=== PATIENT | male | born 1945 | race Caucasian/White ===

== ENCOUNTER → 2017-05-03 12:32 | Outpatient (CLI) | payer MEDICARE, OTHER ==
[~2017-05-03 12:32] MED LIST: ACIPHEX20 MG PO; AMITRIPTYLINE H50 MG PO; BUPROPION HCL100 M1 PO; CALTRATE-600600 MG PO; CENTRUM COMPLE1 EACH PO; COZAAR100 MG PO; EFFEXOR75 MG PO; GLUCOPHAGE500 MG PO; GLUCOSAMINE & C1 CAP PO; HCTZ25 MG PO; NORCO 10/325 TA1 TA1 PO; NORCO 7.5/325 T1 TA1 PO; PULMICORT180 MCG/AE INH; RESTORIL15 MG PO; ROBAXIN-750750 MG PO; ZOCOR80 MG PO
== END | disposition home or self-care (01) ==
LOC: D.CT 12:32
DX: R94.30 Abnormal result of cardiovascular function study, unspecified (principal); R42 Dizziness and giddiness

== ENCOUNTER 2018-02-22 23:45 | Inpatient (IN) | payer MEDICARE, OTHER ==
[~2018-02-22] VITALS: Ht 177.8 cm; Wt 109.1 kg
--- NOTE | ~2018-02-22 | CN ---
PATIENT NAME:MARCOS SAXENA MEDICAL RECORD: [id number] : 49 LOCATION:XIOMY.E09- ADMIT DATE: 02/23/18 ACCOUNT: [id number] CONSULTING PHYSICIAN: DEE MANNING MD REFERRING PHYSICIAN: DORA VILLANUEVA MD DATE OF CONSULTATION: 02/23/2018 DIAGNOSES: 1. Unstable angina. 2. Coronary artery disease. 3. Previous percutaneous transluminal coronary angioplasty stent in 2001. 4. Hypertension. 5. Hyperlipidemia. 6. Carotid vascular disease. 7. Unsteady gait bilaterally. HISTORY OF PRESENT ILLNESS: This is a gentleman who presents with anginal symptomatology. He had multiple hours of chest pain yesterday. He does have a cardiac history. Last cardiac stent was in 2001. He has hypertension and hyperlipidemia. He has been worked up recently for unsteady gait. Carotid exam is pending. PHYSICAL EXAMINATION: GENERAL APPEARANCE: Well-nourished, well-developed, appears stated age. Level of distress, comfortable. PSYCHIATRIC: Mental status, alert, normal affect. Orientation, oriented to time, place and person. EYES: Lids and conjunctiva, noninjected. No discharge, no pallor. ENT: Lips, teeth, gums, normal dentition. Oropharynx, no cyanosis, no pallor. NECK: Carotid arteries, bilateral normal upstroke, no bruits, no thrills. JUGULAR VEINS: No jugular venous pressure or distention. CERVICAL LYMPH NODES: Nontender, nonenlarged. THYROID: Not enlarged. Nontender. No nodules. LUNGS: Respiratory effort, unlabored. CHEST: Normal curvature. No thoracic deformity. No chest wall tenderness. Percussion, resonant. Auscultation, clear. No wheezes, no rales, no rhonchi. CARDIOVASCULAR: Precordial exam, nondisplaced. No heaves or pericardial thrills. Rate and rhythm, regular. Heart sounds, normal S1, normal S2. No S3, no gallop, no rub. Systolic murmur, not heard. Diastolic murmur, not heard. EXTREMITIES: No cyanosis, no edema. Peripheral pulses, full and equal in all extremities, except as noted. No bruits appreciated. ABDOMEN: Soft, nondistended. Normal aorta. No bruit. Nontender. No masses. Liver, nontender, no hepatomegaly. Spleen, nontender, no splenomegaly. MUSCULOSKELETAL: No joint tenderness. No joint swelling. No erythema. NEUROLOGICAL: Normal gait, normal strength, normal tone. SKIN: Warm and dry. OVERALL IMPRESSION: Anginal symptomatology in an unstable fashion, the patient with known coronary artery disease. We will proceed with coronary angiography. We will also do four-vessel carotid and vertebral angiography secondary to the unsteady gait. TRANSINT:[id number] Voice Confirmation ID: [id number] DOCUMENT ID: [id number] CONSULT REPORT [id number] MARCOS SAXENA JEFFREY MD CC: [id number] DICTATION DATE: 02/23/18817 VISUAL MERCHANDISER: 02/23/1848 ADM IN [facility] [address] [id number]
--- NOTE | ~2018-02-22 | OP ---
PATIENT NAME: MARCOS SAXENA MEDICAL RECORD: [id number] :49 LOCATION:EDITA SeguraCL03 ADMISSION DATE:02/23/18 SURGEON: DEE MANNING MD DATE OF OPERATION: 02/23/2018 DATE OF SERVICE: 02/23/2018 PROCEDURES: 1. Four-vessel carotid and vertebral angiography. 2. Left heart catheterization. 3. Selective coronary angiography. 4. Left ventriculogram. 5. Intravascular ultrasound. 6. PTCA stent LAD. INDICATION: Unstable angina, unsteady gait, coronary artery disease, carotid vascular disease. DESCRIPTION OF PROCEDURE: After informed consent was obtained and after a detailed description of risks, benefits as well as alternative therapies, the patient elected to proceed with angiogram and angioplasty. The right femoral area was prepped and draped in normal sterile fashion. Right femoral artery was cannulated via modified Seldinger technique with placement of 6-Nepali sheath. All catheters exchanged through this sheath. FINDINGS: There was subselection of each subclavian as well as the left carotid. RIGHT SIDE: The common internal and external carotids have mild plaquing, none greater than 20%, no flow-limiting stenosis. Vertebral artery has no significant disease. LEFT SYSTEM: The common internal and external carotids have mild plaquing, none greater than 20%, no flow-limiting stenosis. Vertebral artery has no significant disease. Left ventriculogram was performed in standard 30-degree KILPATRICK view, reveals good cardiac wall motion throughout all segments. Overall ejection fraction estimated at 60%. SELECTIVE CORONARY ANGIOGRAPHY: 1. Left main showed no significant angiographic disease. 2. Left anterior descending has 65% to 70% stenosis in the mid vessel confirmed by intravascular ultrasound. 3. The left circumflex has mild irregularities, but no flow-limiting stenosis. 4. Right coronary has mild irregularities, but no flow-limiting stenosis. PTCA STENT OF THE LAD: The stent used is 3.0 x 15 mm Integrity. Result was 0% residual stenosis. OVERALL IMPRESSION: Successful percutaneous transluminal coronary angioplasty stent of the left anterior descending going from 70% initial stenosis confirmed by intravascular ultrasound to 0% residual. TRANSINT:[id number] Voice Confirmation ID: [id number] DOCUMENT ID: [id number] OPERATIVE REPORT [id number] MARCOS SAXENA DEE CHOI MD CC: [id number] DICTATION DATE: 02/23/18 1019 STRINGER MACHINE TENDER: 02/23/18 1038 ADM IN [facility] [address] [id number]
--- NOTE | ~2018-02-22 | HEMODYNAMI ---
PATIENT:MARCOS SAXENA MEDICAL RECORD: [id number] : 49 LOCATION:EDITA SeguraCL03 ADMISSION DATE: 02/23/18 Generatedon:02/23/201810:21 Patient name: MARCOS SAXENA Patient #: [id number] SSN: D OB: 1945 Date of study: 02/23/2018 Page: Of Hemodynamic Procedure Report Patient Data Patient Demographics Procedure consent was obtained First Name: MARCOS Gender: Male Last Name: HEMANTH : 1945 [facility] Initial: ELLE Age: 73 year(s) Patient #: [id number] Race: Unknown Additional ID: [id number] Contact details Address: [address] [place] [address] State: [place] City: [place] Zip code: [address] Past Medical History Allergies: No known allergies Admission Admission Data Admission Date: 02/23/2018 Admission Time: 1:34 Room #: D.CL03 Height (in.): 70 BSA: 2.26 (m2) Height (cm.): 177.8 BMI: 34.51 (kg/m2) Weight (lbs.): 240.5 Weight (kg.): 109.09 Lab Results Lab Result Date: 02/23/2018 Lab Result Time: 0:00 Biochemistry Name Units Result Min Max BUN mg/dl 20 --(----)*- 7 18 Creatinine mg/dl 1.2 --(---*)-- 0.6 1.3 CBC Name Units Result Min Max Hemoglobin g/dl 15 --(-*--)-- 13.5 17.5 Procedure Procedure Types Cath Procedure Diagnostic Procedure [facility] w/Coronaries FFR/IVUS Intra-Coronary IVUS Initial PCI Procedure Coronary Stent Coronary Stent Initial Peripheral Cath Diagnostic Procedure Guide Peripheral Procedures Four Vessel Arteriogram Procedure Description Procedure Date Procedure Date: 02/23/2018 Procedure Start Time: 10:00 Procedure End Time: 10:18 Procedure Staff Name Function Floyd Pelayo MD Performing Physician Gisselle Mitchell RT Monitor Domenico Palomo RT Scrub Yasemin Henry RN Nurse Bari Espana RT Plater Printed Circuit Board Panels Procedure Data Cath Procedure Fluoroscopy Diagnostic fluoroscopy Total fluoroscopy Time: 4.4 time: 4.4 min min Diagnostic fluoroscopy Total fluoroscopy dose: 980 dose: 980 mGy mGy Contrast Material Contrast Material Type Amount (ml) Isovue 300 178 Entry Location Entry Primary Successful Side Size Upsize Upsize Entry Closure Succes sful Closure Location (Fr) 1 (Fr) 2 (Fr) Remarks Device Remarks Femoral Right 5 Fr 6 Fr Exoseal artery Short Estimated blood loss: 10 ml Diagnostic catheters Device Type Used For End Catheter Placement MULTIPACK Pigtail 5 Fr Procedure catheter MULTIPACK JL 4.0 5Fr Procedure catheter MULTIPACK 3DRC 5Fr Procedure catheter DIAGNOSTIC AR2 MOD 5 Fr Procedure catheter ([id number]) MULTIPACK 3DRC 5Fr Procedure catheter Procedure Complications No complications Procedure Medications Medication Administration Route Dosage 0.9% NaCl I.V. 100 ml/hr Oxygen etCO2 Nasal cannula 2 l/min Lidocaine 2% added to field 20 Heparin Flush Bag added to field 2 bags (1000units/500ml NS) Versed I.V. 2 mg Fentanyl I.V. 50 mcg Versed I.V. 2 mg Fentanyl I.V. 50 mcg Heparin Bolus I.V. 4000 units Integrilin (Bolus I.V. 9.5 ml 2mg/ml) Versed I.V. 1 mg Hemodynamics Rest BSA: 2.26 (m2) HGB: 15 (g/dl) O2 Consumption: Estimated: 257.09 (ml/min) O2 Cons umption indexed: Estimated:113.76 (ml/min/m) Heart Rate: 65 (bpm) Snapshots Pre Cath Intra NCS Post Cath Vital Signs Time Heart Resp SPO2 etCO2 NIBP (mmHg) Rhythm Pain Sedation Rate (ipm) (%) (mmHg) Status Level (bpm) 9:34:55 62 13 96 17.1 169/107(137) NSR 0 (11) 10(A) , No pain 9:39:13 62 19 90 46.9 147/95(119) NSR 0 (11) 10(A) , No pain 9:43:33 62 16 98 27.6 148/97(124) NSR 0 (11) 10(A) , No pain 9:47:53 64 23 98 56 162/106(142) NSR 0 (11) 10(A) , No pain 9:52:13 68 28 98 55.9 157/108(133) NSR 0 (11) 10(A) , No pain 9:56:38 69 15 98 7.4 164/99(132) NSR 0 (11) 10(A) , No pain 10:00:55 70 15 97 8.2 150/101(127) NSR 0 (11) 10(A) , No pain 10:05:16 75 19 97 9.6 168/102(115) NSR 0 (11) 10(A) , No pain 10:09:44 73 18 97 40.3 156/98(133) NSR 0 (11) 10(A) , No pain 10:14:04 82 14 97 13.4 153/113(122) NSR 0 (11) 10(A) , No pain 10:18:22 70 16 98 46.9 149/101(131) NSR 0 (11) 10(A) , No pain Medications Time Medication Route Dose Verified Delivered Reason Notes Effectiveness by by 9:37:23 0.9% NaCl I.V. 100 Floyd Yasemin used for ml/hr Pierce Henry teleprinter 9:37:30 Oxygen etCO2 2 Floyd Yasemin used for Nasal l/min Pierce Henry procedure cannula RN 9:37:35 Lidocaine 2% added 20ml Floyd Floyd for local to vial Pierce Pelayo MD anesthetic field 9:37:39 Heparin Flush added 2 Floyd Floyd used for Bag to bags Pierce Pelayo MD procedure (1000units/500ml field NS) 9:59:25 Versed I.V. 2 mg Floyd Yasemin for sedation Pierce Henry RN 9:59:32 Fentanyl I.V. 50 Floyd Yasemin for sedation mcg Pierce Henry RN 10:07:39 Versed I.V. 2 mg Floyd Yasemin for sedation Pierce Henry RN 10:07:43 Fentanyl I.V. 50 Floyd Yasemin for sedation mcg Pierce Henry RN 10:12:27 Heparin Bolus I.V. 4000 Floyd Yasemin for verif ied units Pierce Henry anticoagulation with Dr. KAREN Pelayo 10:12:29 Versed I.V. 1 mg Floyd Hazel for sedation Pierce Henry RN 10:13:04 Integrilin I.V. 9.5 Floyd Hazel for waste d (Bolus 2mg/ml) ml Pierce Henry anticoagulation 0.5mL pet technologist Log Time Note 9:12:02 Bari Espana RT(R) sent for patient. Start room use. 9:13:21 Signed procedure consent form obtained from patient. 9:13:26 H&P Date Dictated: 02/23/2018 ER History on chart.. 9:13:28 Diagnostic Cath status Elective 9::29 Time tracking: Regular hours (M-F 7:00 - 5:00) 9:13:33 Plan of Care:Hemodynamics will remain stable., Cardiac rhythm will remain stable., Comfort level will be maintained., Respiratory function will remain adequate., Patient/ family verbilizes understanding of procedure., Procedure tolerated without complication., Recovers from procedure without complications.. 9:13:45 Patient allergic to No known allergies 9:14:13 Lab Result : BUN 20 mg/dl 9:14:13 Lab Result : Hemoglobin 15 g/dl 9:14:13 Lab Result : Creatinine 1.2 mg/dl 9:28:09 Patient received from ED to CCL 1 Alert and oriented. Tansferred to table in Supine position. 9:28:09 Warm blankets applied, and rob hugger turned on for patient comfort. 9:28:10 Correct patient and procedure confirmed by team. 9:28:10 ECG and BP/O2 sat monitors applied to patient. 9:33:34 Vital chart was started 9:37:03 Baseline sample Acquired. 9:37:05 Rhythm: sinus rhythm 9:37:06 Full Disclosure recording started 9:37:07 Pre-procedure instructions explained to patient. 9:37:07 Pre-op teaching completed and patient verbalized understanding. 9:37:09 Family in waiting room. 9:37:18 Is patient on blood thinner?Yes 9:37:21 ACC The patient was administered the following blood thiners within the last 24 hours: ACCPlavix 9:37:22 Patient diabetic? Yes. 9:37:23 0.9% NaCl 100 ml/hr I.V. was administered by Yasemin Henry RN; used for procedure; 9:37:23 If diabetic: On Metformin? No 9:37:25 Previous problem with sedation/anesthesia? No ? 9:37:26 Snore? Yes 9:37:28 Sleep apnea? Yes 9:37:29 Deviated septum? No 9:37:30 Oxygen 2 l/min etCO2 Nasal cannula was administered by Yasemin Henry RN; used for procedure; 9:37:30 Opens mouth fully? No 9:37:31 Sticks out tongue? Yes 9:37:34 Airway obstruction? Yes COPD 9:37:35 Lidocaine 2% 20ml vial added to field was administered by Floyd Pelayo MD; for local anesthetic; 9:37:37 Dentures? No ? 9:37:39 Heparin Flush Bag (1000units/500ml NS) 2 bags added to field was administered by Floyd Pelayo MD; used for procedure; 9:37:39 Pre procedure: right dorsailis pedis pulse 2+ Normal; easily identifiable; not easily obliterated 9:37:42 Patient pain scale 0/10 ?. 9:38:21 IV patent on arrival in left hand with 0.9% NaCl at O. 9:38:23 Lab results completed and on chart. 9:38:27 Right groin area was prepped with chlora-prep and draped in sterile fashion 9:38:28 Alarms reviewed by R. N. 9:38:28 Sharps counted by scrub and verified by R.N. 9:38:32 Use device set Femoral Dx 9:38:33 ACIST Syringe (50343) opened to sterile field. 9:38:34 Bag Decanter (2002) opened to sterile field. 9:38:35 ACIST Hand Control (80080) opened to sterile field. 9:38:35 ACIST Manifold (46521) opened to sterile field. 9:38:36 Tegaderm 4 x 4 (1626W) opened to sterile field. 9:38:37 Medline Cath Pack ([id number]) opened to sterile field. 9:38:38 DIAGNOSTIC WIRE .035 260cm J wire (406438) opened to sterile field. 9:38:39 DIAGNOSTIC Multipack 5Fr catheter set (US1316) opened to sterile field. 9:38:40 SHEATH 5FR [place] (BQQ827) opened to sterile field. 9:40:49 Patient Height : 70 inches 9:40:54 Patient Weight : 240.5 lbs 9:41:30 Procedure type changed to Cath procedure, Diagnostic procedure, LHC, LHC w/Coronaries, FFR/IVUS, Intra-Coronary IVUS Initial, PCI procedure, Coronary Stent, Coronary Stent Initial, Peripheral Cath Diagnostic Procedure, Guide Peripheral Procedures, Four Vessel Arteriogram 9:43:01 Physician paged 9:43:51 Zero performed for pressure channel P1 9:57:29 --------ALL STOP TIME OUT------ :57:29 Final Timeout: patient, procedure, and site verified with staff and physician. All members of the team are in agreement. 9:57:31 Right groin site verified by team. 9:57:34 Physical assessment completed. ASA score P 2 - A patient with mild systemic disease as per Floyd Pelayo MD. 9:57:38 Sedation plan: IV Moderate Sedation Medication:Versed, Fentanyl 9:59:25 Versed 2 mg I.V. was administered by Yasemin Henry RN; for sedation; 9:59:32 Fentanyl 50 mcg I.V. was administered by Yasemni Henry RN; for sedation; 10:00:05 Procedure started. 10:00:08 Local anesthetic to right femoral artery with Lidocaine 2% by Floyd Pelayo MD.INITIAL ACCESS ONLY 10:00:28 A 5 Fr sheath was inserted into the Right Femoral artery 10:00:51 A MULTIPACK Pigtail 5 Fr catheter was advanced over the wire and used for Procedure. 10:01:12 LV gram done using KILPATRICK 10:01:20 Injector settings: Ml/sec: 10, Volume: 20, 10:01:33 EF : 70 % 10:01:35 Catheter removed. 10:01:45 A MULTIPACK JL 4.0 5Fr catheter was advanced over the wire and used for Procedure. 10:02:26 LCA angiography performed. 10:02:50 Catheter removed. 10:02:56 A MULTIPACK 3DRC 5Fr catheter was advanced over the wire and used for Procedure. 10:03:25 Catheter removed. 10:03:33 UNABLE TO ENGAGE RCA 10:04:12 SHEATH 6FR [place] (SCY963) opened to sterile field. 10:04:19 Sheath upsized to a 6 Fr Short. 10:04:23 A DIAGNOSTIC AR2 MOD 5 Fr catheter ([id number]) was advanced over the wire and used for Procedure. 10:04:46 RCA angiography performed. 10::47 Catheter removed. 10:05:22 INFLATOR Merit BasixCompak (WB4052) opened to sterile field. 10:05:23 CHOICE PT Extra Support 182cm wire ([id number]) opened to sterile field. 10:05:23 Papillion [place] IVUS Catheter (55555U) opened to sterile field. 10:05:33 A MULTIPACK 3DRC 5Fr catheter was advanced over the wire and used for Procedure. 10:06:04 Right carotid angiography performed. 10:06:30 Left carotid angiography performed. 10::51 Catheter removed. 10::55 GUIDE 6FR XBLAD 4.0 catheter ([id number]) opened to sterile field. 10:07:29 6 Fr XBLAD 4 guide catheter was inserted over the wire 10:07:39 Versed 2 mg I.V. was administered by Yasemin Henry RN; for sedation; ::43 Fentanyl 50 mcg I.V. was administered by Yasemin Henry RN; for sedation; 10:08:16 CHOICE ES 182 wire advanced. 10:09:13 Wire advanced across lesion. 10:10:54 IVUS catheter advanced over wire. 10:10:56 IVUS pass to LAD lesion performed. 10:10:56 IVUS catheter removed over wire. 10:12:27 Heparin Bolus 4000 units I.V. was administered by Yasemin Henry RN; for anticoagulation; verified with Dr. Pelayo 10:12:29 Versed 1 mg I.V. was administered by Yasemni Henry RN; for sedation; 10:12:43 Place stent Inflation Number: 1 A INTEGRITY RX 3.0 x 15 stent ([id number]) was prepped and advanced across the Prox LAD. The stent was deployed at 17 TESSA for 0:10 (min:sec). 10:13:04 Integrilin (Bolus 2mg/ml) 9.5 ml I.V. was administered by Yasemin Henry RN; for anticoagulation; wasted 0.5mL 10:13:05 Stent catheter was removed intact over wire. 10:13:07 Wire removed. 10:13:07 Guide catheter removed. 10:13:14 EXOSEAL 6Fr (EX600) opened to sterile field. 10:13:29 Sheath removed intact; hemostasis achieved with Exoseal to the Right Femoral artery. 10:13:31 Procedure ended.(Physican Out) 10:13:52 Fluoroscopy time 04.40 minutes. 10:14:03 Flurop Dose total: 980 10:14:03 Fluoroscopy dose: 980 mGy 10:14:06 Contrast amount:Isovue 300 178ml. 10:14:10 Post-op/insertion site Right Femoral artery dressed using a 4 x 4 and Tegaderm. 10:14:15 Post right femoral artery:stable, soft, clean and dry 10:17:10 Post-procedure physical assessment completed. ASA score P 2 - A patient with mild systemic disease as per Floyd Pelayo MD. 10:17:13 Post procedure rhythm: sinus rhythm 10:17:15 Estimated blood loss: 10 ml 10:17:17 Post procedure instruction explained to patient.Patient verbalizes understanding. 10:17:17 Patient needs reinforcement of post procedure teaching. 10:18:24 Procedure and supply charges have been captured, reviewed, submitted and are correct. 10:18:26 Procedure Complication : No complications 10:18:28 Vital chart was stopped 10:18:28 See physician's report for complete and final results. 10:18:30 Report given to Pre/Post Procedure Room. 10:18:32 Patient transfered to Pre/Post Procedure Room with Bed. 10:18:34 Procedure ended. 10:18:34 Full Disclosure recording stopped 10:18:38 End room use (Document Last) Intervention Summary Intervention Notes Time ActionType Lesion and Equipment Action# Pressure Duration Attributes Used 10:12:43 Place stent Prox LAD INTEGRITY RX 1 17 00:10 3.0 x 15 stent ([id number]) Device Usage Item Name Manufacture Quantity Catalog Number Hospital Part Current Mini mal Lot# / Charge Number Stock Stock Serial# Code ACIST Acist 1 30424 296455 777876 419376 20 Syringe Medical (85096) Systems Inc Bag Decanter Microtek 1 473382 17019 016001 5 () Medical Inc. ACIST Hand Acist 1 04488 983616 839058 893927 5 Control Medical (58810) Systems Inc ACIST Acist 1 47232 759300 170497 276730 5 Manifold Medical (03638) Systems Inc Tegaderm 4 x 3M 1 1626W 203466 652388 941784 5 4 (1626W) Medline Cath Medline 1 [id number] 816617 37238 066455 5 Pack ([id number]) DIAGNOSTIC St Ronald 1 742667 984295 060803 657153 30 WIRE .035 260cm J wire (504930) DIAGNOSTIC Cardinal 1 GP7900 219547 29512 232686 30 Multipack Health 5Fr catheter set (XB7742) SHEATH 5FR Terumo 1 SHP256 345765 504571 317691 40 [place] (WZD183) MULTIPACK Cardinal 1 767450 5 Pigtail 5 Fr Health catheter MULTIPACK JL Cardinal 1 136923 5 4.0 5Fr Health catheter MULTIPACK Cardinal 1 814830 5 3DRC 5Fr Health catheter DIAGNOSTIC Cardinal 1 [id number] 577600 316237 744210 20 AR2 MOD 5 Fr Health catheter (054532M) SHEATH 6FR Terumo 1 XHI089 723110 009509 276703 40 [place] (BLA060) INFLATOR Merit 1 FM0464 057317 066232 403564 15 BCKSTGR BasixCompak (LS4529) CHOICE PT [place] 1 [id number] 977784 324375 315819 5 Extra Scientific Support 182cm wire ([id number]) Papillion Papillion 1 21983Q 741186 063045 925036 8 [place] IVUS Catheter (13097F) GUIDE 6FR Cardinal 1 12913193 094828 885048 210516 3 XBLAD 4.0 Health catheter (54215990) INTEGRITY RX Medtronic 1 [id number] 125826 674577 298088 5 [id number] 3.0 x 15 stent ([id number]) EXOSEAL 6Fr Cardinal 1 EX600 273213 141883 363525 10 (EX600) Health Signature Audit [place] Stage Time Signature Unsigned Intra-Procedure 02/23/2018 Gisselle Mitchell 10:21:11 AM RT(R) Signatures Monitor : Gisselle Mitchell Signature : RT Date : Time : [facility] [address] [place] [address]
[2018-02-22 23:46] VITALS: Ht 177.8 cm; Wt 109.1 kg
[2018-02-22] MEDS ORDERED: FLOMAX0.4 MG PO (23:52)
[2018-02-22] MEDS ORDERED: GLUCOPHAGE1000 MG PO (23:52)
[2018-02-22] MEDS ORDERED: PROTONIX40 MG PO (23:52)
[2018-02-22] MEDS ORDERED: CYPROHEPTAD2 MG/5 ML PO (23:53)
[2018-02-22] MEDS ORDERED: VOLTAREN75 MG PO (23:53)
[2018-02-23 00:08] LABS: BASOPHILS 0.6 % (0-2); HEMATOCRIT 42.7 % (42.0-54.0); IMMATURE GRANULOCYTES 0.3 % (0-5); LYMPHOCYTES 35.7 % (15-50); MCH 31.1 pg (26.0-34.0); MCHC 35.1 g/dL (31.0-37.0); MCV 88.6 fL (80.0-100.0); MONOCYTES 7.8 % (2-11); NEUTROPHILS 53.6 % (40-80); PLATELET COUNT 214 10x3/uL (130-400); RBC 4.82 10x6/uL (4.20-6.10); RDW 12.9 % (11.5-14.5); WBC 8.6 10x3/uL (4.8-10.8)
[2018-02-23 00:14] LABS: APTT 23.7 SECONDS (22.8-39.4); INR 1.04 (0.85-1.17); PROTIME 13.1 SECONDS (11.6-15.0)
[2018-02-23 00:30] LABS: ALBUMIN 3.1 g/dL (3.4-5.0); ALKALINE PHOSPHATASE 51 U/L (46-116); ALT (SGPT) 47 U/L (10-68); BILIRUBIN - TOTAL 0.46 mg/dL (0.2-1.3); CALC OSMOLALITY 285 mosm/kg (275-300); CALCIUM 8.1 mg/dL (8.5-10.1); CARBON DIOXIDE 32.9 mmol/L (21.0-32.0); CHLORIDE - SERUM 103 mmol/L (98-107); CREATININE - SERUM 1.2 mg/dL (0.6-1.3); GLUCOSE 140 mg/dL (74-106); POTASSIUM - SERUM 3.2 mmol/L (3.5-5.1); PROTEIN - SERUM 6.8 g/dL (6.4-8.2); SODIUM 141 mmol/L (136-145); UREA NITROGEN 20 mg/dL (7-18); eGFR NON AFRICAN AMERICAN 63 mL/min (90-120)
[2018-02-23 00:34] LABS: CKMB 0.6 U/L (0.0-3.6); CREATINE KINASE 79 UL (21-232); MAGNESIUM - SERUM 1.7 mg/dL (1.8-2.4)
[2018-02-23 00:35] LABS: TROPONIN-I < 0.017 ng/mL (0.000-0.060)
[2018-02-23 02:07] LABS: CREATINE KINASE 92 UL (21-232)
[2018-02-23 02:08] LABS: TROPONIN-I < 0.017 ng/mL (0.000-0.060)
[2018-02-23 03:44] VITALS: BP 150/80
[2018-02-23 08:28] LABS: CKMB 0.7 U/L (0.0-3.6); CREATINE KINASE 87 UL (21-232)
[2018-02-23 08:30] LABS: TROPONIN-I < 0.017 ng/mL (0.000-0.060)
[2018-02-23 09:24] VITALS: BP 167/92
[2018-02-23] MEDS ORDERED: ASPIRIN81 MG PO (11:00)
[2018-02-23] MEDS ORDERED: PLAVIX75 MG PO (11:00)
== END 2018-02-23 14:30 | disposition home or self-care (01) | DRG 249 ==
LOC: D.ER 23:45 → D.CLR 02-23 01:34 → D.EDHOLD 02-23 01:34 → D.CLR 02-23 10:03
PROVIDERS: Family Medicine; Internal Medicine Interventional Cardiology
PROC: 4A023N7 Measurement of Cardiac Sampling and Pressure, Left Heart, Percutaneous Approach (ICD-10-PCS; 2018-02-23)
PROC: B2111ZZ Fluoroscopy of Multiple Coronary Arteries using Low Osmolar Contrast (ICD-10-PCS; 2018-02-23)
PROC: B2151ZZ Fluoroscopy of Left Heart using Low Osmolar Contrast (ICD-10-PCS; 2018-02-23)
PROC: B3151ZZ Fluoroscopy of Bilateral Common Carotid Arteries using Low Osmolar Contrast (ICD-10-PCS; 2018-02-23)
PROC: B31G1ZZ Fluoroscopy of Bilateral Vertebral Arteries using Low Osmolar Contrast (ICD-10-PCS; 2018-02-23)
PROC: B3121ZZ Fluoroscopy of Left Subclavian Artery using Low Osmolar Contrast (ICD-10-PCS; 2018-02-23)
PROC: B3181ZZ Fluoroscopy of Bilateral Internal Carotid Arteries using Low Osmolar Contrast (ICD-10-PCS; 2018-02-23)
PROC: B31C1ZZ Fluoroscopy of Bilateral External Carotid Arteries using Low Osmolar Contrast (ICD-10-PCS; 2018-02-23)
PROC: 02703DZ Dilation of Coronary Artery, One Artery with Intraluminal Device, Percutaneous Approach (ICD-10-PCS; principal; 2018-02-23 09:12)
PROC: B240ZZ3 Ultrasonography of Single Coronary Artery, Intravascular (ICD-10-PCS; 2018-02-23 09:12)
DX: I25.110 Atherosclerotic heart disease of native coronary artery with unstable angina pectoris (principal); I10 Essential (primary) hypertension; E78.5 Hyperlipidemia, unspecified; F32.9 Major depressive disorder, single episode, unspecified; R26.89 Other abnormalities of gait and mobility

== ENCOUNTER 2018-02-22 23:45 | Outpatient (CLI) | payer MEDICARE, OTHER ==
[2018-02-22 23:46] VITALS: BMI 34.5
[2018-02-22] MEDS ORDERED: PROTONIX40 MG PO (23:52)
[2018-02-22] MEDS ORDERED: GLUCOPHAGE1000 MG PO (23:52)
[2018-02-22] MEDS ORDERED: FLOMAX0.4 MG PO (23:52)
[2018-02-22] MEDS ORDERED: CYPROHEPTAD2 MG/5 ML PO (23:53)
[2018-02-22] MEDS ORDERED: VOLTAREN75 MG PO (23:53)
[2018-02-23] MEDS ORDERED: PLAVIX75 MG PO (11:00)
[2018-02-23] MEDS ORDERED: ASPIRIN81 MG PO (11:00)
== END 2018-02-23 01:34 | disposition other institution (70) ==
LOC: D.OPS 23:45
DX: I25.110 Atherosclerotic heart disease of native coronary artery with unstable angina pectoris (principal); I10 Essential (primary) hypertension; E78.5 Hyperlipidemia, unspecified

== ENCOUNTER 2018-11-18 17:38 | Emergency (ER) | payer MEDICARE, OTHER ==
[~2018-11-18] VITALS: Ht 177.8 cm; Wt 6.7 kg
[~2018-11-18 17:38] MED LIST changes: +ASPIRIN81 MG PO; +CYPROHEPTAD2 MG/5 ML PO; +FLOMAX0.4 MG PO; +GLUCOPHAGE1000 MG PO; +PLAVIX75 MG PO; +PROTONIX40 MG PO; +VOLTAREN75 MG PO
[2018-11-18 17:47] VITALS: Ht 177.8 cm; Wt 6.7 kg
[2018-11-18 18:48] LABS: BASOPHILS 0.4 % (0-2); EOSINOPHILS 1.3 % (0-7); HEMATOCRIT 46.6 % (42.0-54.0); HEMOGLOBIN 16.5 g/dL (13.5-17.5); IMMATURE GRANULOCYTES 0.2 % (0-5); LYMPHOCYTES 35.6 % (15-50); MCH 31.1 pg (26.0-34.0); MCHC 35.4 g/dL (31.0-37.0); MCV 87.9 fL (80.0-100.0); MEAN PLATELET VOLUME 10.4 fL (7.4-10.4); MONOCYTES 8.4 % (2-11); NEUTROPHILS 54.1 % (40-80); PLATELET COUNT 233 10x3/uL (130-400); RDW 12.8 % (11.5-14.5); WBC 8.6 10x3/uL (4.8-10.8)
[2018-11-18 18:51] LABS: APPEARANCE CLEAR (CLEAR); BILIRUBIN NEGATIVE (NEGATIVE); COLOR YELLOW (YELLOW); GLUCOSE NEGATIVE (NEGATIVE); KETONE NEGATIVE (NEGATIVE); NITRITE NEGATIVE (NEGATIVE); PROTEIN NEGATIVE (NEGATIVE); SPECIFIC GRAVITY 1.015 (1.005-1.020); UROBILINOGEN NORMAL (NORMAL)
[2018-11-18 18:53] LABS: BACTERIA FEW /hpf (NONE SEEN); RED CELLS - URINE OCC /hpf (0-5); WHITE CELLS - URINE RARE /hpf (0-5)
[2018-11-18 19:11] LABS: ALBUMIN 3.6 g/dL (3.4-5.0); ALKALINE PHOSPHATASE 52 U/L (46-116); ALT (SGPT) 46 U/L (10-68); AMYLASE - SERUM 131 U/L (25-115); BILIRUBIN - TOTAL 0.41 mg/dL (0.2-1.3); CARBON DIOXIDE 28.5 mmol/L (21.0-32.0); CHLORIDE - SERUM 104 mmol/L (98-107); LIPASE 316 U/L (73-393); POTASSIUM - SERUM 3.5 mmol/L (3.5-5.1); PROTEIN - SERUM 7.6 g/dL (6.4-8.2); SODIUM 140 mmol/L (136-145); UREA NITROGEN 19 mg/dL (7-18); eGFR NON AFRICAN AMERICAN 78 mL/min (90-120)
[2018-11-18 19:12] LABS: CALC OSMOLALITY 280 mosm/kg (275-300); GLUCOSE 91 mg/dL (74-106); TROPONIN-I < 0.017 ng/mL (0.000-0.060)
[2018-11-18 21:55] VITALS: BP 118/75
[2018-11-18 22:06] LABS: HELICOBACTER PYLORI IGG NEGATIVE (NEGATIVE)
== END 2018-11-18 21:55 | disposition home or self-care (01) ==
LOC: D.ER 17:38
PROVIDERS: Family Medicine
DX: R10.9 Unspecified abdominal pain (principal)

== ENCOUNTER → 2019-02-14 08:51 | Outpatient (CLI) | payer MEDICARE, OTHER | END | disposition home or self-care (01) | LOC: D.RT 02-08 09:30 | PROVIDERS: ATTEND Internal Medicine Pulmonary Disease | DX: J44.9 Chronic obstructive pulmonary disease, unspecified (principal) ==

== ENCOUNTER → 2020-01-13 08:59 | Outpatient (CLI) | payer MEDICARE, OTHER | END | disposition home or self-care (01) | LOC: D.HCCARDIO 08:59 | PROVIDERS: ATTEND Internal Medicine Cardiovascular Disease | DX: I25.10 Atherosclerotic heart disease of native coronary artery without angina pectoris (principal) ==